=== PATIENT | male | born 1990 | race Caucasian/White ===

== ENCOUNTER → 2024-07-19 | Outpatient (CLI) | payer OTHER, SELFPAY ==
[2024-07-19 12:09] LABS: Absolute Lymphocyte Count 2.75 X10^3/uL (0.83-4.51); Absolute Neutrophil Count 4.2 X10^3/uL (2.0-7.7); Basophil# 0.12 X10^3/uL; Basophil% 1.4 % (0-1); Eosinophil# 0.35 X10^3/uL; Eosinophils% 4.2 % (0-5); Hemoglobin 15.7 g/dL (13.0-16.5); Lymphocyte # 2.75 X10^3/ul (0.83-4.51); Lymphocyte % 33.1 % (19-41); Mean Corp Hgb Conc 34.9 g/dL (32-36); Mean Corpuscular Hgb 29.2 pg (27.0-32.0); Mean Corpuscular Volume 83.8 fL (80-94); Mean Platelet Vol. 10.3 fl (6.2-12.0); Monocyte# 0.78 X10^3/uL; Monocyte% 9.4 % (0-10); NRBC Flagged by Analyzer 0 % (0-5); Neutrophil # 4.21 X10^3/uL (2.7-7.7); Neutrophil % 50.8 % (47-70); Platelet Count 237 K/mm3 (150-450); RBC Distribution Width CV 12.3 % (11.6-14.6); RBC Distribution Width SD 37.1 fl (35.1-43.9); Red Blood Count 5.37 M/mm3 (4.6-6.2); White Blood Count 8.3 K/mm3 (4.4-11.0)
[2024-07-19 12:41] LABS: Hemoglobin A1c 5.3 % (<=5.6)
[2024-07-19 12:55] LABS: ALB/GLOB Ratio 1.6 RATIO (0.9-2.4); AST(SGOT) 30 U/L (<=37); Alanine Aminotransfer ALT/SGPT 32 U/L (<=46); Albumin, Serum 4.4 g/dL (3.5-5.0); Alkaline Phosphatase 101 U/L (40-129); Anion Gap 11 (5-15); BUN 10 mg/dL (4-19); BUN/Creat Ratio 10.9 RATIO (10-20); Calcium,Total 9.5 mg/dL (7.6-11.0); Carbon Dioxide 25.9 mmol/L (21.0-32.0); Chloride 101 mmol/L (98-108); Cholesterol 173 mg/dL (<=200); Creatinine, Serum 0.95 mg/dL (0.70-1.20); EST Glomerular Filtration Rate 108 (>60); Globulin 2.8 g/dL (2.2-4.2); Glucose 92 mg/dL (70-99); High Density Lipoprotein 46 mg/dL; Low Density Lipoprotein Calc. 77 mg/dL; Potassium 4.2 mmol/L (3.3-5.1); Protein, Total 7.1 g/dL (5.9-8.4); Sodium Level 138 mmol/L (133-145); Triglycerides 247 mg/dL; Very Low Density Lipoprotein 49 mg/dL (5-40); Vitamin B12 672 pg/mL (180-914); Vitamin D,25 Hydroxy 14.4 ng/mL (30-100); cholesterol:hdl ratio screen 3.73
== END | disposition home or self-care (01) ==
LOC: VSLAB 10:35
DX: Z13.6 Encounter for screening for cardiovascular disorders (principal); Z13.1 Encounter for screening for diabetes mellitus; Z13.220 Encounter for screening for lipoid disorders
CPT/HCPCS: 36415; 80053; 80061; 82306; 82607; 83036; 84443; 85025

== ENCOUNTER → 2024-09-03 | Outpatient (CLI) | payer OTHER, SELFPAY | END | disposition home or self-care (01) | DX: G47.10 Hypersomnia, unspecified (principal) | CPT/HCPCS: 95806 ==